=== PATIENT | male | born 1970 | race Caucasian/White ===

== ENCOUNTER 2017-12-02 16:53 | Emergency (ER) | payer SELFPAY ==
[2017-12-02 18:00] LABS: #Eosinphils 0.1 thou/uL (0.0-0.7); #Lymphocytes 1.2 thou/uL (1.20-3.40); #Monocytes 0.8 thou/uL (0.11-0.59); #Neutrophils 11.3 thou/uL (1.40-6.50); %Basophils 0.1 % (0.0-1.0); %Lymphocytes 8.7 % (21.0-51.0); %Monocytes 5.8 % (0.0-10.0); %Neutrophils 84.4 % (42.0-75.0); Hemoglobin 16.4 g/dL (14.0-18.0); Mean Corpuscular HGB CONC 33.9 g/dL (32.0-36.0); Mean Corpuscular Hemoglobin 30.7 pg (27.0-31.0); Mean Corpuscular Volume 90.5 fL (78.0-98.0); Mean Platelet Volume 7.7 fL (7.4-10.4); Platelet Count 251 thou/uL (130-400); RBC Distribution Width 11.4 % (11.5-14.5); Red Blood Cell (RBC) Count 5.33 mill/uL (4.70-6.10); White Blood Cell (WBC) Count 13.4 thou/uL (4.8-10.8)
[2017-12-02 18:22] LABS: ALT (SGPT) 18 U/L (8-55); AST (SGOT) 24 U/L (5-34); Albumin 4.6 g/dL (3.5-5.0); Alkaline Phosphatase 75 U/L (40-150); Anion Gap 20 mmol/L (10-20); BUN (Urea Nitrogen) 16 mg/dL (8.9-20.6); Bilirubin, Total 1.2 mg/dL (0.2-1.2); Calc. Creatinine Clearance 0 mL/min (70-130); Carbon Dioxide 16 mmol/L (22-29); Chloride 107 mmol/L (98-107); Estimated GFR-MDRD 57; Globulin 3.1 g/dL (2.4-3.5); Glucose 122 mg/dL (70-105); Potassium 3.5 mmol/L (3.5-5.1); Protein, Total 7.7 g/dL (6.0-8.3); Sodium 139 mmol/L (136-145)
[2017-12-02] MEDS ORDERED: Ondansetron ODT 4 MG TAB ONE ×2 (18:25→18:26)
[2017-12-02] MEDS ORDERED: Ketorolac Tromethamine 30 MG/ML VIAL ONE (18:46)
[2017-12-02 20:32] LABS: Bilirubin Negative (Negative); Blood, Urine Moderate (Negative); Clarity CLEAR (Clear); Glucose, Urine (Dipstick) Negative (Negative); Leukocyte Negative (Negative); Nitrite Negative (Negative); Protein, Urine (Dipstick) Trace mg/dL (Neg-Trace); Specific Gravity, Urine 1.025 (1.002-1.036); pH, Urine 7.5 (5.0-9.0)
[2017-12-02 20:34] LABS: Bacteria/HPF None Seen HPF (None Seen); Hyaline Casts/LPF 7-10 HYALINE CAST LPF (0-3 Hyaline); Pathc Cast-AUWi Flag 0.29 (0-2.49); RBC/HPF GREATER THAN 50-TNTC HPF (0-3); Squamous Epithelial 0-3 HPF (0-3)
--- NOTE | 2017-12-02 21:43 | CT ---
CT STONE PROTOCOL 12/02/17 HISTORY: Right flank pain. FINDINGS: Comparison made to exam of 11/20/17. Absence of oral and IV contrast reduces the sensitivity of the exam particularly for the evaluation o f solid organs and bowel. The lung bases are clear. No free air or free fluid is seen in the abdomen or pelvis. No calcified ga llstones are noted. There are vascular calcifications without evidence or aneurysmal dilatation of th e abdominal aorta. A normal appearing appendix is present. There is colonic diverticulosis. Bilateral renal calculi are present. There is a right sided hydroureteronephrosis, perinephric and pe riureteric inflammatory change secondary to a 3 mm calculus of the right UVJ. No left sided hydrouret eronephrosis seen. IMPRESSION: 1. Bilateral renal calculi. 2. 3 mm obstructing calculus at the right UVJ. POS: [facility]
== END 2017-12-02 22:21 | disposition home or self-care (01) ==
LOC: ERS 16:53
DX: N13.2 Hydronephrosis with renal and ureteral calculous obstruction (principal); F17.200 Nicotine dependence, unspecified, uncomplicated
CPT/HCPCS: 36415; 74176; 80053; 81003; 81015; 85025; 96361; 96374; J1885; Q0162

== ENCOUNTER 2018-06-30 17:51 | Observation (INO) | payer SELFPAY ==
[~2018-06-30 17:51] MED LIST: Glycopyrrolate 0.2 MG/ML 5 ML SYRINGE ONE; ISOVUE-370 76%-LOCM 1 ML ONE; Lidocaine 1% PF 5 ML VIAL ONE; Ondansetron PF 4 MG/2 ML Vial ONE; PROPOFOL 200 MG/20 ML VIAL ONE; Rocuronium Bromide 10 MG/ML (10ML VIAL) ONE; Succinylcholine Chloride 20 MG/ML 10 ml SYRINGE FS ONE
[2018-06-30] MEDS ORDERED: Fentanyl 100 MCG/2 ML VIAL ONE ×2 (17:59→18:34)
[2018-06-30 18:18] LABS: #Basophils 0.1 thou/uL (0.0-0.2); #Eosinphils 0.3 thou/uL (0.0-0.7); #Lymphocytes 1.9 thou/uL (1.20-3.40); #Monocytes 0.5 thou/uL (0.11-0.59); #Neutrophils 6.8 thou/uL (1.40-6.50); %Basophils 1.1 % (0.0-1.0); %Eosinophils 2.7 % (0.0-10.0); %Lymphocytes 20.2 % (21.0-51.0); Hemoglobin 15.5 g/dL (14.0-18.0); Mean Corpuscular HGB CONC 33.7 g/dL (32.0-36.0); Mean Corpuscular Hemoglobin 31.4 pg (27.0-31.0); Mean Corpuscular Volume 93.2 fL (78.0-98.0); Mean Platelet Volume 7.4 fL (7.4-10.4); Platelet Count 265 thou/uL (130-400); RBC Distribution Width 11.9 % (11.5-14.5); Red Blood Cell (RBC) Count 4.95 mill/uL (4.70-6.10); White Blood Cell (WBC) Count 9.5 thou/uL (4.8-10.8)
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
[2018-06-30 18:24] LABS: PTT 30.4 SEC (22.9-36.1); Prothrombin Time 12.9 SEC (12.0-14.7)
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
[2018-06-30] MEDS ORDERED: hydrALAZINE 20 MG/ML VIAL SLOW IVP PRN ×2 (18:29→23:45)
[2018-06-30] MEDS ORDERED: Dextrose 5% in Water 1,000 ML IV PRN ×2 (18:29→23:44)
[2018-06-30] MEDS ORDERED: Bacitracin Zinc Ointment 30 gm TUBE ONE (18:29)
[2018-06-30] MEDS ORDERED: Ondansetron PF 4 MG/2 ML Vial IVP PRN ×2 (18:29→23:47)
[2018-06-30] MEDS ORDERED: Morphine 2 MG/ML SYRINGE SLOW IVP PRN (18:29)
[2018-06-30] MEDS ORDERED: Dextrose 50% Abboject 50 ML SYRINGE SLOW IVP PRN ×2 (18:29→23:45)
[2018-06-30] MEDS ORDERED: Bupivacaine HCl 0.5%/Epinephrine 1:200,000/PF 30 ml Vial ONE (18:29)
[2018-06-30] MEDS ORDERED: Morphine 4 MG/ML VIAL SLOW IVP PRN ×2 (18:29→23:46)
[2018-06-30] MEDS ORDERED: Ondansetron ODT 4 MG TAB PO PRN ×2 (18:29→23:47)
[2018-06-30] MEDS ORDERED: Rib Fracture Protocol PO SCH (18:30)
[2018-06-30] MEDS ORDERED: Adacel (T-DAP) 0.5 ML SYRINGE ONE (18:32)
[2018-06-30 18:33] LABS: ALT (SGPT) 36 U/L (8-55); AST (SGOT) 39 U/L (5-34); Albumin 4.6 g/dL (3.5-5.0); Alcohol Less than 10 mg/dL (Less than 10); Alkaline Phosphatase 66 U/L (40-150); Anion Gap 15 mmol/L (10-20); BUN (Urea Nitrogen) 16 mg/dL (8.9-20.6); Bilirubin, Total 0.4 mg/dL (0.2-1.2); Calc. Creatinine Clearance 0 mL/min (70-130); Calcium 9.8 mg/dL (7.8-10.44); Carbon Dioxide 24 mmol/L (22-29); Chloride 103 mmol/L (98-107); Estimated GFR-MDRD 78; Globulin 2.7 g/dL (2.4-3.5); Glucose 108 mg/dL (70-105); Lipase 27 U/L (8-78); Potassium 3.7 mmol/L (3.5-5.1); Protein, Total 7.3 g/dL (6.0-8.3); Sodium 138 mmol/L (136-145)
[2018-06-30] MEDS ORDERED: Midazolam HCl 2 mg/2 ml Vial ONE (18:34)
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
[2018-06-30] MEDS ORDERED: Sodium Chloride 0.9% 1,000 ML IV SCH (18:45)
[2018-06-30] MEDS ORDERED: Cyclobenzaprine 10 MG TAB PO PRN (19:00)
[2018-06-30 19:19] LABS: Phosphorus 2.7 mg/dL (2.3-4.7)
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
[2018-06-30] MEDS ORDERED: Ondansetron HCl/PF 4 MG/2 ML Vial IVP PRN ×2 (20:06→20:24)
[2018-06-30] MEDS ORDERED: Promethazine HCl 25 MG/ML VIAL IM PRN ×2 (20:06→20:24)
[2018-06-30] MEDS ORDERED: Promethazine HCl 25 MG/ML VIAL SLOW IVP PRN ×2 (20:06→20:24)
[2018-06-30] MEDS ORDERED: Gabapentin 300 MG CAP PO SCH (21:00)
[2018-06-30] MEDS ORDERED: Famotidine/PF 20 mg/2ml Vial SLOW IVP SCH (21:00)
[2018-06-30 22:05] VITALS: BMI 24.4
[2018-06-30] MEDS ORDERED: Acetaminophen 500 MG TAB PO SCH (23:59)
[2018-06-30] MEDS ORDERED: traMADol HCl 50 MG TAB PO SCH (23:59)
[2018-06-30] MEDS ORDERED: Ibuprofen 800 MG TAB PO SCH (23:59)
[2018-07-01] MEDS: Acetaminophen 500 MG TAB PO SCH ×5 (00:05→23:06)
[2018-07-01] MEDS: Ibuprofen 800 MG TAB PO SCH ×5 (00:06→23:06)
[2018-07-01] MEDS: traMADol HCl 50 MG TAB PO SCH ×5 (00:06→23:05)
[2018-07-01] MEDS: Sodium Chloride 0.9% 1,000 ML IV SCH ×3 (00:11→16:09)
[2018-07-01] MEDS: Morphine 4 MG/ML VIAL SLOW IVP PRN ×4 (01:21→10:42)
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
[2018-07-01] MEDS: Famotidine/PF 20 mg/2ml Vial SLOW IVP SCH ×2 (08:00→21:36)
[2018-07-01] MEDS: Gabapentin 300 MG CAP PO SCH ×3 (08:01→21:36)
[2018-07-01 09:43] LABS: #Eosinphils 0.2 thou/uL (0.0-0.7); #Lymphocytes 1.9 thou/uL (1.20-3.40); #Monocytes 0.7 thou/uL (0.11-0.59); #Neutrophils 4.2 thou/uL (1.40-6.50); %Basophils 0.5 % (0.0-1.0); %Eosinophils 2.9 % (0.0-10.0); %Lymphocytes 27.3 % (21.0-51.0); %Monocytes 9.3 % (0.0-10.0); Hemoglobin 10.2 g/dL (14.0-18.0); Mean Corpuscular HGB CONC 33.8 g/dL (32.0-36.0); Mean Corpuscular Hemoglobin 31.2 pg (27.0-31.0); Mean Corpuscular Volume 92.2 fL (78.0-98.0); Mean Platelet Volume 7.6 fL (7.4-10.4); Platelet Count 210 thou/uL (130-400); RBC Distribution Width 11.7 % (11.5-14.5); Red Blood Cell (RBC) Count 3.26 mill/uL (4.70-6.10); White Blood Cell (WBC) Count 6.9 thou/uL (4.8-10.8)
[2018-07-01] MEDS ORDERED: Tamsulosin HCl 0.4 MG CAP PO SCH (13:45)
[2018-07-01] MEDS: Ferrous Sulfate 325 MG TAB PO SCH (17:50)
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
[2018-07-02] MEDS: Sodium Chloride 0.9% 1,000 ML IV SCH ×2 (01:34→09:01)
[2018-07-02] MEDS: Acetaminophen 500 MG TAB PO SCH ×2 (05:20→11:16)
[2018-07-02] MEDS: Ibuprofen 800 MG TAB PO SCH ×2 (05:20→11:16)
[2018-07-02] MEDS: traMADol HCl 50 MG TAB PO SCH ×2 (05:20→11:16)
[2018-07-02] MEDS: Cyclobenzaprine 10 MG TAB PO PRN ×2 (07:09→15:15)
[2018-07-02] MEDS: Gabapentin 300 MG CAP PO SCH ×2 (07:09→15:15)
[2018-07-02] MEDS: Ferrous Sulfate 325 MG TAB PO SCH (08:55)
[2018-07-02] MEDS: Famotidine/PF 20 mg/2ml Vial SLOW IVP SCH (08:55)
[2018-07-02] MEDS ORDERED: Lidocaine 5% Patch TD SCH (09:00)
[2018-07-02] MEDS ORDERED: Tamsulosin HCl 0.4 MG CAP PO SCH (09:00)
[2018-07-02] MEDS ORDERED: Senokot S 8.6-50 MG TAB PO SCH (09:00)
[2018-07-02] MEDS ORDERED: Polyethylene Glycol 3350 17 GM Packet PO SCH (09:00)
[2018-07-02] MEDS ORDERED: Ascorbic Acid 500 mg Chewable Tablet PO SCH (09:00)
[2018-07-02] MEDS ORDERED: Lidocaine Patch Removal 1 EACH TOP SCH (09:45)
[2018-07-02] MEDS ORDERED: Bisacodyl 10 MG SUPP PR SCH (12:00)
[2018-07-02 15:43] VITALS: BP 121/69; TEMP 97.9
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
[2018-07-03] MEDS ORDERED: Lidocaine 5% Patch TD SCH (09:00)
== END 2018-07-02 16:30 | disposition home or self-care (01) ==
LOC: ERS 17:51 → SURG A 18:48 → INTOOBSV 21:09 → SURG A 21:09
PROVIDERS: ADMIT Specialist; ATTEND Specialist
PROC: 0JQ00ZZ Repair Scalp Subcutaneous Tissue and Fascia, Open Approach (ICD-10-PCS; principal; 2018-07-02)
DX: S08.0XXA Avulsion of scalp, initial encounter (principal); S22.42XA Multiple fractures of ribs, left side, initial encounter for closed fracture; S27.329A Contusion of lung, unspecified, initial encounter; N28.1 Cyst of kidney, acquired; R33.9 Retention of urine, unspecified; F17.210 Nicotine dependence, cigarettes, uncomplicated; V54.6XXA Passenger in pick-up truck or van injured in collision with heavy transport vehicle or bus in traffic accident, initial encounter
CPT/HCPCS: 36415; 51701; 51798; 70450; 71260; 72125; 74177; 80053; 80307; 83690; 83735; 84100; 85025; 85610; 85730; 86850; 86900; 86901; 90471; 90715; 93005; 94760; 96361; 96374; 96375; 96376; G0378; G0390; J0670; J2001; J2250; J2270; J2405; J2704; J3010; Q0162; Q9966; S0028